=== PATIENT | male | born 1955 | race Caucasian/White ===

== ENCOUNTER 2021-03-17 10:35 | Day surgery (SDC) | payer MEDICAID ==
[2021-03-16 13:31] LABS: BASOPHILS # (AUTO) 0.1 X10'3 (0-0.2); BASOPHILS % (AUTO) 1.5 % (0-1); EOSINOPHILS # (AUTO) 0.3 X10'3 (0-0.9); EOSINOPHILS % (AUTO) 5.4 % (0-6); HEMATOCRIT 41.2 % (42.0-52.0); HEMOGLOBIN 13.6 g/dl (14.0-17.9); LYMPHOCYTES % (AUTO) 20.2 % (21-51); MEAN CORPUSCULAR HEMOGLOBIN 29.7 PG (27.0-31.0); MEAN CORPUSCULAR HGB CONC 32.9 g/dL (33.0-36.5); MEAN CORPUSCULAR VOLUME 90.4 FL (78-98); MEAN PLATELET VOLUME 7.5 FL (7.4-10.4); MONOCYTES # (AUTO) 0.5 X10'3 (0-0.9); MONOCYTES % (AUTO) 9.2 % (2-12); NEUTROPHILS # (AUTO) 3.3 X10'3 (1.8-7.7); NEUTROPHILS % (AUTO) 63.7 % (42-75); PLATELET COUNT 204 X10'3 (140-440); RED BLOOD COUNT 4.56 X10'6 (4.70-6.10); RED CELL DISTRIBUTION WIDTH 13.6 % (11.5-14.5); WHITE BLOOD COUNT 5.1 X10'3 (4.5-11.0)
[2021-03-16 13:44] LABS: PARTIAL THROMBOPLASTIN TIME 29 SECONDS (22-32)
[2021-03-16 13:50] LABS: ALBUMIN 3.1 G/DL (3.4-5.0); ANION GAP 9 (8-16); BILIRUBIN,TOTAL 0.4 MG/DL (0.1-1.0); BLOOD UREA NITROGEN 19 MG/DL (7-18); BUN/CREATININE RATIO 19.8 (5.4-32.0); CHLORIDE 106 MMOL/L (99-107); CREATININE 0.96 MG/DL (0.60-1.10); GLUCOSE 85 MG/DL (70-104); POTASSIUM 4.3 MMOL/L (3.5-5.1); SODIUM 142 MMOL/L (135-145); TOTAL CARBON DIOXIDE 27.1 MMOL/L (24-32); TOTAL PROTEIN 6.7 G/DL (6.4-8.2); eGFR 79 ML/MIN
[2021-03-16 13:51] LABS: ALANINE AMINOTRANSFERASE 23 U/L (12-78); ALBUMIN/GLOBULIN RATIO 0.9 (1.1-1.5); ALKALINE PHOSPHATASE 92 IU/L (46-116); ASPARTATE AMINO TRANSFERASE 17 U/L (10-37)
[2021-03-17] VITALS (12 sets, daily range): BP systolic 117–172; BP diastolic 80–104
[~2021-03-17] VITALS: Ht 172.7 cm; Wt 73.1 kg
[2021-03-17] MEDS ORDERED: nitroGLYCERIN 0.4mg SUBLingual tab SL PRN ×2 (11:00→13:30)
[2021-03-17] MEDS ORDERED: LORazepam 0.5 MG tablet PO PRN (11:05)
[2021-03-17] MEDS ORDERED: normal saline 1,000 ML IV SCH (11:05)
[2021-03-17] MEDS ORDERED: diphenhydrAMINE 25mg capsule PO PRN (11:05)
[2021-03-17] MEDS ORDERED: IBUP-864 PO (11:14)
[2021-03-17] MEDS ORDERED: TIOT4MIS3 INH (11:14)
[2021-03-17] MEDS ORDERED: CART1TAB5 PO (11:14)
[2021-03-17] MEDS ORDERED: LOSA50TA3 PO (11:14)
[2021-03-17] MEDS ORDERED: ASPI-380 PO (11:14)
[2021-03-17] MEDS ORDERED: DOXA8TAB20 PO (11:14)
[2021-03-17] MEDS ORDERED: midazolam 1 mg/ML 2ml injection ONE (12:01)
[2021-03-17] MEDS ORDERED: fentaNYL/PF 50MCG/1 ML 2ML syringe ONE (12:02)
[2021-03-17] MEDS ORDERED: iohexol 350MG/ML 100ml bottle IV ONE (12:02)
[2021-03-17] MEDS ORDERED: LIDOcaine 1% (10mg/ml)w/preservative injection 20ml MDV ONE (12:02)
[2021-03-17] MEDS ORDERED: iohexol 350 MG/ML 50ML vial IV ONE ×2 (12:02→12:44)
[2021-03-17] MEDS ORDERED: HYDROcodone/acetaminophen 5mg/325mg tablet PO PRN (13:30)
[2021-03-17] MEDS ORDERED: HYDROcodone/acetaminophen 10/325mg tab PO PRN (13:30)
[2021-03-17] MEDS ORDERED: proCHLORperazine 10 MG/2 ml inj IV PRN (13:30)
[2021-03-17] MEDS ORDERED: ondansetron/PF 4mg/2ml inj IV PRN (13:30)
[2021-03-17] MEDS ORDERED: OXAZEpam 15mg capsule PO PRN (13:30)
== END 2021-03-17 19:20 | disposition home or self-care (01) ==
LOC: SSTAY O 10:35
PROVIDERS: ATTEND Internal Medicine Cardiovascular Disease
DX: R94.39 Abnormal result of other cardiovascular function study (principal); I25.10 Atherosclerotic heart disease of native coronary artery without angina pectoris; J44.9 Chronic obstructive pulmonary disease, unspecified; E78.5 Hyperlipidemia, unspecified; N40.1 Benign prostatic hyperplasia with lower urinary tract symptoms; I10 Essential (primary) hypertension; F17.210 Nicotine dependence, cigarettes, uncomplicated; M19.90 Unspecified osteoarthritis, unspecified site; Z79.899 Other long term (current) drug therapy; Z79.01 Long term (current) use of anticoagulants
CPT/HCPCS: 36415; 71046; 80053; 85025; 85610; 85730; 93005; 93458; 93567; 99152; C1760; C1769; J1644; J2001; J2250; J3010; J7030; Q0163; Q9967; 99153; A4620; A6258